=== PATIENT | female | born 1975 | race Two or more races ===

== ENCOUNTER 2018-01-17 19:59 | Emergency (ER) | payer OTHER ==
[~2018-01-17] VITALS: Ht 152.4 cm; Wt 66.7 kg
[2018-01-17] MEDS ORDERED: LEXAPRO20 MG (20:05)
[2018-01-17] MEDS ORDERED: METFORMIN HCL500 MG (20:06)
[2018-01-17] MEDS ORDERED: CLONAZEPAM0.5 MG (20:06)
[2018-01-17] MEDS ORDERED: AMBIEN10 MG (20:06)
== END 2018-01-17 21:34 | disposition home or self-care (01) ==
LOC: ER 19:59
DX: G89.18 Other acute postprocedural pain (principal); K08.89 Other specified disorders of teeth and supporting structures; K04.7 Periapical abscess without sinus